=== PATIENT | male | born 1955 | race Caucasian/White ===

== ENCOUNTER 2023-04-05 13:42 | Day surgery (SDC) | payer MEDICARE, BC, SELFPAY ==
[2023-04-05] VITALS (12 sets, daily range): BP systolic 115–148; BP diastolic 52–89; PULSE 80–93; RESP 15–20; TEMP 36.1–36.6; O2SAT 94–98; BMI 27.0
--- NOTE | 2023-04-05 14:14 | CTR_ITS ---
PROCEDURE INFORMATION: Exam: CT Abdomen And Pelvis With Contrast Exam date and time: 04/05/2023 3:44 PM Age: 68 years old Clinical indication: Other: Perirectal abscess TECHNIQUE: Imaging protocol: Computed tomography of the abdomen and pelvis with contrast. Radiation optimization: All CT scans at this facility use at least one of these dose optimization techniques: automated exposure control; mA and/or kV adjustment per patient size (includes targeted exams where dose is matched to clinical indication); or iterative reconstruction. Contrast material: OMNI 350; Contrast volume: 100 ml; Contrast route: INTRAVENOUS (IV); REPORTING DATA: Count of CT and Cardiac NM exams in prior 12 months: This patient has received 0 known CTs and 0 known cardiac nuclear medicine studies in the 12 months prior to the current study. COMPARISON: CT abdomen pelvis w con* [id number] 07/14/2018 12:21 PM RADIATION DOSE METRICS: Total DLP (mGy-cm): 626.28 FINDINGS: Liver: There is a 2.9 cm left liver cyst.Hypodensities in the liver are too small to definitely characterize although statistically they most likely represent benign cysts. Gallbladder and bile ducts: Normal. No calcified stones. No ductal dilation. Pancreas: Normal. No ductal dilation. Spleen: Normal. No splenomegaly. Adrenal glands: Normal. No mass. Kidneys and ureters: Normal. No hydronephrosis. Stomach and bowel: Colonic diverticula are present although there are no CT findings to suggest diverticulitis. No bowel obstruction. Appendix: The appendix is visualized and appears normal. Intraperitoneal space: Unremarkable. No free air. No significant fluid collection. Vasculature: Unremarkable. No abdominal aortic aneurysm. Lymph nodes: Unremarkable. No enlarged lymph nodes. Urinary bladder: Unremarkable as visualized. Reproductive: Unremarkable as visualized. Bones/joints: Unremarkable. No acute fracture. Soft tissues: There is a right perianal abscess measuring 4 x 3 cm. This contains an air-fluid level. CT/CT abdomen pelvis w con* [id number] IMPRESSION: There is a right perianal abscess measuring 4 x 3 cm.
--- NOTE | 2023-04-05 14:17 | W.ED.SKABFB ---
HPI - Skin/Abscess/Foreign Bdy General: Chief complaint: Skin/Abscess/Foreign Body Stated complaint: Boil on buttocks Time Seen by Provider: 04/05/23 13:57 History of Present Illness: Patient is a 68-year-old male comes to the ED with abscess on right buttock. Patient says approximately 6 days ago he started developing a small tender nodule on right buttock near anus. Patient says he has had multiple abscesses like this before in the past and had to go to the OR to get them surgically drained. Patient says this current abscess feels like his previous ones. Over the past 6 days the swelling and pain have gotten worse. Now any movement or any pressure in that area when he sits down causes worsening pain. He rates his pain currently an 8 out of 10 when he is resting comfortably in a good position. Denies any fevers, vomiting, bladder or bowel symptoms. Associated symptoms: Deny chills, fever(s), nausea or vomiting Review of Systems Const: Denies: fever(s), chills or fatigue Eyes: Denies: change in vision or eye discomfort ENMT: Denies: throat pain, odynophagia, nasal discharge or nasal congestion Card: Denies: chest pain, palpitations, edema, swelling of feet/ankles, dyspnea on exertion or orthopnea Resp: Denies: dyspnea, productive cough or non-productive cough GI: Denies: abdominal pain, nausea, vomiting, diarrhea, constipation or hematochezia : Denies: flank pain, difficulty urinating, dysuria or hematuria Musc: Denies: neck pain, back pain or extremity swelling Skin/Breast: Reports: new lesions (Abscess on right buttock); Denies: rash Neuro: Denies: headache(s), numbness in extremities or weakness in extremities [facility] ED PFSH: Medical History (Updated 04/05/23 @ 16:57 by AKUA Green) Abscess, perirectal No pertinent family history Physical Exam Const: COMMON NORMALS: patient oriented x3 and alert GENERAL APPEARANCE: not comfortable (Patient appears uncomfortable and in some pain.) HENMT: COMMON NORMALS: normocephalic HEAD & SCALP: normocephalic MOUTH: Normal oral and palatal mucosa present THROAT: posterior oropharynx normal and uvula midline Neck/C-Spine: COMMON NORMALS: supple GENERAL: Yes normal visual inspection Resp: COMMON NORMALS: normal respiratory effort, No retractions, No use of accessory muscles and clear to auscultation bilaterally AUSCULTATION: clear to auscultation bilaterally Cardio: COMMON NORMALS: regular rate, regular rhythm, S1 normal heart sound present, S2 normal heart sound present, No gallops present (Cardio), No clicks present (Cardio), No murmurs present (Cardio) and Peripheral pulses 2+ throughout RATE: regular rate RHYTHM: regular rhythm HEART SOUNDS: S1 normal heart sound present and S2 normal heart sound present PERIPHERAL PULSES: Peripheral pulses 2+ throughout GI: COMMON NORMALS: Normal to inspection, nondistended, normoactive bowel sounds present, Soft to palpation, non-tender and no masses PALPATION: Yes Soft to palpation : COMMON NORMALS: Yes no CVA tenderness BLADDER/KIDNEY EXAM: Yes no CVA tenderness Back/Pelvis: COMMON NORMALS: no CVA tenderness Extremity: COMMON NORMALS: normal to inspection Neuro: COMMON NORMALS: patient oriented x3 SENSORIUM/ORIENTATION: Yes alert GAIT: Yes Normal gait present Skin: NARRATIVE SKIN EXAM: Right buttock?erythemic, tender and swollen area, no visible purulent drainage seen. Mass is fluctuant and indurated findings suggestive of an abscess SKIN IMAGES (MALE): 1. Erythemic, tender and swollen area. No visible purulent drainage seen. Mass fluctuant and indurated GENERAL SKIN EXAM: dry skin Course Vital Signs: Vital signs: Vital Signs Temperature 97.0 F L 04/05/23 20:04 Pulse Rate 87 04/05/23 20:10 Respiratory Rate 18 04/05/23 20:10 Blood Pressure 121/68 04/05/23 20:10 Pulse Oximetry 96 04/05/23 20:10 Oxygen Delivery Me thod Room Air 04/05/23 20:10 MDM - Skin/Abscess/Foreign Bdy Medicial Decision Making Patient is a 68-year-old male comes to the ED with abscess on right buttock. Patient says approximately 6 days ago he started developing a small tender nodule on right buttock near anus. Patient says he has had multiple abscesses like this before in the past and had to go to the OR to get them surgically drained. Patient says this current abscess feels like his previous ones. Over the past 6 days the swelling and pain have gotten worse. Now any movement or any pressure in that area when he sits down causes worsening pain. He rates his pain currently an 8 out of 10 when he is resting comfortably in a good position. Denies any fevers, vomiting, bladder or bowel symptoms. Vitals are stable. Patient appears uncomfortable and in some pain. Right buttock?erythemic, tender and swollen area, no visible purulent drainage seen. Mass is fluctuant and indurated findings suggestive of an abscess. White blood count of 14 and the rest of CBC and CMP were unremarkable. CT of abdomen pelvis shows a right perianal abscess measuring 4 x [address] Baer the general surgeon on-call and told her about patient case and CT findings of perianal abscess. Dr. Baer will be coming to see patient here in the ED and then taking patient to the OR to perform abscess I&D. Lab Data I reviewed the patient's lab results. 04/05/23 14:31 04/05/23 14:31 Radiology Impressions Abdomen/Pelvis CT 04/05/23 14:14 IMPRESSION: There is a right perianal abscess measuring 4 x 3 cm. Laboratory Results WBC 14.0 10^3/uL (4.0-10.0) H 04/05/23 14:31 RBC 5.20 10^6/uL (4.1-5.3) 04/05/23 14:31 Hgb 14.7 g/dL (11.7-16.6) 04/05/23 14:31 Hct 47.0 % (42.0-52.0) 04/05/23 14:31 MCV 90.4 fl (80-94) 04/05/23 14:31 MCH 28.3 pg (28.0-34.0) 04/05/23 14:31 MCHC 31.3 g/dL (30.0-36.0) 04/05/23 14:31 RDW 13.4 % (12.1-15.1) 04/05/23 14:31 Plt Count 380 10^3/cmm (130-400) 04/05/23 14:31 MPV 9.2 fL (7.4-10.4) 04/05/23 14:31 Neut % (Auto) 79.7 % 04/05/23 14:31 Lymph % (Auto) 10.5 % 04/05/23 14:31 [place] % (Auto) 8.3 % 04/05/23 14:31 Eos % (Auto) 0.6 % 04/05/23 14:31 Baso % (Auto) 0.5 % 04/05/23 14:31 Neut # (Auto) 11.20 10^3/uL (1.8-7.7) H 04/05/23 14:31 Lymph # (Auto) 1.5 10^3/uL (0.8-4.8) 04/05/23 14:31 [place] # (Auto) 1.2 10^3/uL (0.2-0.9) H 04/05/23 14:31 Eos # (Auto) 0.1 10^3/uL (0.0-0.8) 04/05/23 14:31 Baso # (Auto) 0.1 10^3/uL (0.0-0.1) 04/05/23 14:31 Nucleated RBC % (auto) 0 % 04/05/23 14:31 Nucleated RBCs # 0.0 /100WBC 04/05/23 14:31 Sodium 137 mmol/L (136-145) 04/05/23 14:31 Potassium 3.9 mmol/L (3.5-5.1) 04/05/23 14:31 Chloride 102 mmol/L (98-107) 04/05/23 14:31 Carbon Dioxide 24 mmol/L (22-29) 04/05/23 14:31 Anion Gap 14.9 (5-19) 04/05/23 14:31 BUN 11 mg/dL (8-23) 04/05/23 14:31 Creatinine 0.9 mg/dL (0.7-1.2) 04/05/23 14:31 GFR Calculation 84.2 mL/min (90-130) L 04/05/23 14:31 Glucose 193 mg/dL (65-115) H 04/05/23 14:31 Calculated Osmolality 289 mOsm/kg (285-295) 04/05/23 14:31 Calcium 8.4 mg/dL (8.5-10.5) L 04/05/23 14:31 Total Bilirubin 0.4 mg/dL (0.15-1.2) 04/05/23 14:31 AST 15 U/L (0-40) 04/05/23 14:31 ALT 18 U/L (0-41) 04/05/23 14:31 Alkaline Phosphatase 80 U/L (40-130) 04/05/23 14:31 Total Protein 6.9 g/dL (6.6-8.7) 04/05/23 14:31 Albumin 3.8 g/dL (3.5-5.2) 04/05/23 14:31 Globulin 3.1 g/dL (1.3-4.6) 04/05/23 14:31 Discharge Plan Discharge Patient Disposition: Placed in Observation Clinical Impression: Abscess, perianal Discharge Diet: Usual diet Discharge Activity: Increase activity as tolerated Coding Level of Care Code ED [employer] for Ondina Jones
[2023-04-05] MEDS: morphine 4 mg/mL SDV 1 mL IVP (14:34)
[2023-04-05] MEDS: ondansetron 2 mg/ML SDV 2 mL 4 MG IVP (14:34)
[2023-04-05 14:59] LABS: Basophils # 0.1 10^3/uL (0.0-0.1); Basophils % 0.5 %; Eosinophils # 0.1 10^3/uL (0.0-0.8); Eosinophils % 0.6 %; Hemoglobin 14.7 g/dL (11.7-16.6); Lymphocytes # 1.5 10^3/uL (0.8-4.8); Lymphocytes % 10.5 %; Mean Corpuscular HGB Conc 31.3 g/dL (30.0-36.0); Mean Corpuscular Hemoglobin 28.3 pg (28.0-34.0); Mean Corpuscular Volume 90.4 fl (80-94); Mean Platelet Volume 9.2 fL (7.4-10.4); Monocytes # 1.2 10^3/uL (0.2-0.9); Monocytes % 8.3 %; Neutrophils % 79.7 %; Nucleated Red Blood Cells % 0 %; Platelet Count 380 10^3/cmm (130-400); Red Cell Distribution Width 13.4 % (12.1-15.1)
[2023-04-05 15:20] LABS: Alanine Aminotransferase 18 U/L (0-41); Albumin Level 3.8 g/dL (3.5-5.2); Alkaline Phosphatase 80 U/L (40-130); Anion Gap 14.9 (5-19); Aspartate Amino Transferase 15 U/L (0-40); Blood Urea Nitrogen 11 mg/dL (8-23); Calcium 8.4 mg/dL (8.5-10.5); Carbon Dioxide 24 mmol/L (22-29); Chloride 102 mmol/L (98-107); Globulin 3.1 g/dL (1.3-4.6); Glomerular Filtration Rate 84.2 mL/min (90-130); Glucose 193 mg/dL (65-115); Osmolality Calculated 289 mOsm/kg (285-295); Potassium 3.9 mmol/L (3.5-5.1); Sodium 137 mmol/L (136-145); Total Bilirubin 0.4 mg/dL (0.15-1.2); Total Protein 6.9 g/dL (6.6-8.7)
[2023-04-05] MEDS: iohexol 350 mg/mL 500 mL Btl (per mL) IV (15:48)
--- NOTE | 2023-04-05 17:38 | P.HP_ITS ---
Same Day Surgery H&P Indication for Procedure/HPI DATE OF PROCEDURE: April 05, 2023 CHIEF COMPLAINT/INDICATIONFOR SURGICAL PROCEDURE: Abscess PREOP DIAGNOSIS: Perianal abscess PLANNED PROCEDURE: Examination under anesthesisa, incision and drainage of perianal abscess Nitish Alarcon is a 68-year-old patient who presents with acute pain and swelling near the anus for about a week. He has a history of prior perirectal abscesses. He can sometimes get them to drain spontaneously with soaking and compresses but has had to have surgical drainage on a number of occasions. It sounds like there may have been concern for a fistula in the past, but he has not had any treatment for fistula. He has not taken his temperature at home. He has not eaten since breakfast. ROS GENERAL: Malaise and anorexia, no documented fever OR chills CV: Denies exertional chest pain RESPIRATORY: Fairly active without dyspnea on exertion (mows lawn, etc, without difficulty), denies anesthetic complications HEMATOLOGIC: Denies easy bleeding Medications/Allergies* Home Medications Medication Instructions Recorded Confirmed Type No Known Home Medications 04/05/23 04/05/23 History Allergies/Adverse Reactions Allergy/AdvReac Type Severity Reaction Status Date / Time No Known Allergies Allergy Unverified 04/05/23 15:21 Pertinent History/Comorbid Conditions* COPD Depression Medical History (Updated 04/05/23 @ 16:57 by AKUA Green) Abscess, perirectal No pertinent family history Smokes 1 to 1-1/2 packs/day Pertinent Exam Findings alert, clear to auscultation bilaterally and regular rate & rhythm GENERAL/MENTAL STATUS: Alert, no acute distress CV: Regular rate and rhythm, normal S1 and S2 RESPIRATORY: Respirations unlabored, no wheezing or rhonchi : Large area of erythema and exquisite tenderness right perianal tissue, cannot assess for fluctuance due to tenderness. EXTREMITIES: Moves all extremities. Pertinent Data Radiology Impressions Abdomen/Pelvis CT 04/05/23 14:14 IMPRESSION: There is a right perianal abscess measuring 4 x 3 cm. Laboratory Results WBC 14.0 10^3/uL (4.0-10.0) H 04/05/23 14:31 RBC 5.20 10^6/uL (4.1-5.3) 04/05/23 14:31 Hgb 14.7 g/dL (11.7-16.6) 04/05/23 14:31 Hct 47.0 % (42.0-52.0) 04/05/23 14:31 MCV 90.4 fl (80-94) 04/05/23 14:31 MCH 28.3 pg (28.0-34.0) 04/05/23 14:31 MCHC 31.3 g/dL (30.0-36.0) 04/05/23 14:31 RDW 13.4 % (12.1-15.1) 04/05/23 14:31 Plt Count 380 10^3/cmm (130-400) 04/05/23 14:31 MPV 9.2 fL (7.4-10.4) 04/05/23 14:31 Neut % (Auto) 79.7 % 04/05/23 14:31 Lymph % (Auto) 10.5 % 04/05/23 14:31 [place] % (Auto) 8.3 % 04/05/23 14:31 Eos % (Auto) 0.6 % 04/05/23 14:31 Baso % (Auto) 0.5 % 04/05/23 14:31 Neut # (Auto) 11.20 10^3/uL (1.8-7.7) H 04/05/23 14:31 Lymph # (Auto) 1.5 10^3/uL (0.8-4.8) 04/05/23 14:31 [place] # (Auto) 1.2 10^3/uL (0.2-0.9) H 04/05/23 14:31 Eos # (Auto) 0.1 10^3/uL (0.0-0.8) 04/05/23 14:31 Baso # (Auto) 0.1 10^3/uL (0.0-0.1) 04/05/23 14:31 Nucleated RBC % (auto) 0 % 04/05/23 14:31 Nucleated RBCs # 0.0 /100WBC 04/05/23 14:31 Sodium 137 mmol/L (136-145) 04/05/23 14:31 Potassium 3.9 mmol/L (3.5-5.1) 04/05/23 14:31 Chloride 102 mmol/L (98-107) 04/05/23 14:31 Carbon Dioxide 24 mmol/L (22-29) 04/05/23 14:31 Anion Gap 14.9 (5-19) 04/05/23 14:31 BUN 11 mg/dL (8-23) 04/05/23 14:31 Creatinine 0.9 mg/dL (0.7-1.2) 04/05/23 14:31 GFR Calculation 84.2 mL/min (90-130) L 04/05/23 14:31 Glucose 193 mg/dL (65-115) H 04/05/23 14:31 Calculated Osmolality 289 mOsm/kg (285-295) 04/05/23 14:31 Calcium 8.4 mg/dL (8.5-10.5) L 04/05/23 14:31 Total Bilirubin 0.4 mg/dL (0.15-1.2) 04/05/23 14:31 AST 15 U/L (0-40) 04/05/23 14:31 ALT 18 U/L (0-41) 04/05/23 14:31 Alkaline Phosphatase 80 U/L (40-130) 04/05/23 14:31 Total Protein 6.9 g/dL (6.6-8.7) 04/05/23 14:31 Albumin 3.8 g/dL (3.5-5.2) 04/05/23 14:31 Globulin 3.1 g/dL (1.3-4.6) 04/05/23 14:31 Recommendations Surgery/Procedure today Other Plans: Superficial perianal abscess. I recommended to the patient that incision and drainage be done under anesthesia. I discussed with him risks of infection, bleeding, and damage to adjacent structures. I cannot offer any advice as to whether he will need further treatment for a fistula until a thorough examination is completed during surgery. All questions were answered to his satisfaction. He would like to proceed with examination under anesthesia and incision and drainage of perianal abscess. Coding Level of Care Code Acute Code for Chg Fwd Diagnoses
--- NOTE | 2023-04-05 18:33 | ANES.PREANE2 ---
Pre-Anesthetic Assessment Height/Weight: Height 1.73 m Weight 80.739 kg Temp Pulse Resp BP Pulse Ox O2 Del Method 97.9 F 84 16 121/58 94 Room Air 04/05/23 13:53 04/05/23 17:30 04/05/23 14:34 04/05/23 17:30 04/05/23 17:30 04/05/23 15:36 Preop Diagnosis: Perianal abscess Operation Date: 04/05/23 13:40 Proposed Procedures p Incision And Drainage Incision And Drainage Perianal Abscess(Not Applicable) - Marlen Baer MD Familial anesthetic complications: None Was Beta Adalid taken within 24 hours: N/A Was Clonidine taken within 24 hours: N/A Last intake: > 8hrs Social Tobacco and No alcohol Exam alert, oriented x 3, clear to auscultation bilaterally and regular rate & rhythm Airway Mallampati: Class II Dentition: chipped and other (mulitple missing, extensive dental work) Pulmonary Chronic Obstructive Pulmonary Disease (no steroids, oxygen use, or hospitalizations) Anesthetic Plan ASA status: 2 Anesthesia: General Risk of > 500 ml blood loss (7ml/kg in children): No Medications/Allergies Home Medications Medication Instructions Recorded Confirmed Last Taken Type No Known Home Medications 04/05/23 04/05/23 Unknown History Allergies Allergy/AdvReac Type Severity Reaction Status Date / Time No Known Allergies Allergy Unverified 04/05/23 15:21 [facility] Anesthesia Medical History (Updated 04/05/23 @ 16:57 by AKUA Green) Abscess, perirectal No pertinent family history Data Anesthesia 04/05/23 14:31 04/05/23 14:31 Short CBC 04/05/23 Range/Units 14:31 WBC 14.0 H (4.0-10.0) 10^3/uL Hgb 14.7 (11.7-16.6) g/dL Hct 47.0 (42.0-52.0) % MCV 90.4 (80-94) fl Plt Count 380 (130-400) 10^3/cmm Neut % (Auto) 79.7 % Neut # (Auto) 11.20 H (1.8-7.7) 10^3/uL BMP 04/05/23 14:31 Sodium 137 Potassium 3.9 Chloride 102 Carbon Dioxide 24 BUN 11 Creatinine 0.9 Glucose 193 H Calcium 8.4 L Liver Function 04/05/23 Range/Units 14:31 Total Bilirubin 0.4 (0.15-1.2) mg/dL AST 15 (0-40) U/L ALT 18 (0-41) U/L Alkaline Phosphatase 80 (40-130) U/L Albumin 3.8 (3.5-5.2) g/dL Microbiology 04/05/23 14:31 Blood Culture - Preliminary Blood SPECIMEN COLLECTED 04/05/23 14:48 Blood Culture - Preliminary Blood SPECIMEN COLLECTED Cardiac Studies: No Data to Display
[2023-04-05] MEDS: cefTRIAXone 1,000 MG in sodium chloride 0.9% (plus) 50 ML 100 MG IV (18:59)
--- NOTE | 2023-04-05 19:39 | PM.OP ---
Operative Report Date of procedure: April 05, 2023 Pre-op diagnosis: Preop Diagnosis Perianal abscess Post-op diagnosis: Same Post-op findings: Right perianal abscess superficial Procedure done: Incision and drainage perianal abscess Specimens removed/disposition: Wound culture Surgeon: Marlen Baer MD Architectural Representative: None Anesthesia: General (LMA) Estimated blood loss: Less than 5 mL Complications: None Findings: Large abscess right perianal tissue. Moderate internal hemorrhoids, no evidence of internal fistula opening. Condition: stable Disposition: PACU Brief History: Nitish Alarcon is a 68-year-old patient who presents with pain and swelling near the anus. He has a history of perirectal abscesses. Procedure: The patient was brought to the operating room and placed on the table in the supine position. General anesthetic was given,and an LMA was placed. The patient was placed into lithotomy position. The perineum was prepped with Betadine and sterilely draped. Skin overlying the palpable fluctuance was infiltrated with 0.5% Marcaine and 1% lidocaine with epinephrine. A fluid sample was aspirated for culture. Additional local anesthetic was infiltrated around the anus prior to inserting a lubricated speculum. Examination revealed no masses and no fissure. Moderate internal hemorrhoids were seen. There was no purulent discharge within the anal canal or any other evidence of an internal fistula opening. A #11 blade was used to make a cruciate incision over the abscess, yielding copious purulent discharge. Hemostat was used to probe for loculations, and the cavity was copiously irrigated with saline. Cavity was packed with half-inch packing strip. A benito-pad was placed. The patient was awakened, extubated, and transferred to recovery in satisfactory condition.
== END 2023-04-05 19:52 | disposition home or self-care (01) ==
LOC: ER 17:39 → OR 18:40
PROVIDERS: Emergency Provider Physician Assistant; PCP Family Medicine; Visit Provider Surgery
PROC: (CPT 46050; principal; 2023-04-05 13:30)
DX: K61.0 Anal abscess (principal); K64.8 Other hemorrhoids; J44.9 Chronic obstructive pulmonary disease, unspecified; F32.A Depression, unspecified; F17.200 Nicotine dependence, unspecified, uncomplicated
CPT/HCPCS: 46050; 12345; 74177; 80053; 85025; 87040; 87070; 87075; 87205; 99285; J0330; J0696; J2270; J2405; J2704; J3010; Q9967

== ENCOUNTER → 2023-04-12 15:38 | Outpatient (BNVA) | payer MEDICARE, BC, SELFPAY | PROVIDERS: PCP Family Medicine; Visit Provider Surgery | DX: K61.0 Anal abscess (principal) | CPT/HCPCS: 99024 ==

== ENCOUNTER 2025-03-25 05:28 | Observation (INO) | payer MEDICARE, BC, SELFPAY ==
[2025-03-25] VITALS (20 sets, daily range): BP systolic 95–130; BP diastolic 46–73; PULSE 67–75; RESP 14–18; TEMP 36.3–36.8; O2SAT 93–98; BMI 25.4
--- NOTE | 2025-03-25 06:58 | W.ED.SKABFB ---
HPI - Skin/Abscess/Foreign Bdy General: Chief complaint: Skin/Abscess/Foreign Body Stated complaint: absess on perinium(sp) Time Seen by Provider: 03/25/25 05:41 History of Present Illness: 70-year-old male presents emergency room with tender peritoneal nodule began several days ago was seen in outpatient clinic started on Bactrim. He had perirectal abscess drained about 2 years ago has a recurrence now. Previous one was incised and drained in the OR. No fever sweats or chills no drainage from the wound no bloody diarrhea. Associated symptoms: Deny chills or fever(s) Related Data Home Medications ?Medication ?Instructions ?Recorded ?Confirmed ibuprofen 200 mg tablet (Advil) 200 mg PO Q6H PRN Fever Or Pain 03/25/25 03/25/25 sulfamethoxazole 800 1 tab PO BID 03/25/25 03/25/25 mg-trimethoprim 160 mg tablet Allergies Allergy/AdvReac Type Severity Reaction Status Date / Time No Known Allergies Allergy Unverified 04/12/23 15:40 Review of Systems Const: Denies: fever(s) or chills Card: Denies: chest pain Resp: Denies: dyspnea GI: Denies: abdominal pain : Denies: dysuria, urinary frequency or urinary urgency Musc: Denies: neck pain or back pain Skin/Breast: Denies: rash [facility] ED PFSH: Medical History Abscess, perirectal No pertinent family history Family History Unknown Diabetes Heart disease Social History Smoking and tobacco/nicotine status: current every day tobacco/nicotine user cigarettes Alcohol intake: current Physical Exam Const: COMMON NORMALS: no acute distress GENERAL APPEARANCE: cooperative and comfortable ORIENTATION/CONSCIOUSNESS: Yes awake, Yes oriented to person, Yes oriented to place and Yes oriented to time HENMT: COMMON NORMALS: normocephalic, atraumatic and hearing grossly normal bilaterally HEAD & SCALP: normocephalic and atraumatic Resp: COMMON NORMALS: normal respiratory effort, No retractions, No use of accessory muscles and clear to auscultation bilaterally AUSCULTATION: clear to auscultation bilaterally Cardio: COMMON NORMALS: regular rate, regular rhythm and No murmurs present (Cardio) RATE: regular rate RHYTHM: regular rhythm GI: COMMON NORMALS: Soft to palpation and No hepatosplenomegaly present AUSCULTATION: Yes normoactive bowel sounds PALPATION: Yes Soft to palpation, No Tenderness to palpation present (GI), No Guarding due to palpation present (GI) and Yes No hepatosplenomegaly present : OTHER: Examination the perineum large fluctuant exquisitely tender perineal abscess. Scar from previous incision and drainage noted no active drainage. Extremity: COMMON NORMALS: normal to inspection, capillary refill normal, no clubbing, cyanosis or edema, no calf tenderness and no pedal edema Neuro: SENSORIUM/ORIENTATION: Yes oriented to person, Yes oriented to place and Yes oriented to time Skin: COMMON NORMALS: no rashes or lesions noted GENERAL SKIN EXAM: no rashes or lesions noted Course Vital Signs: Vital signs: Vital Signs Temperature 97.3 F L 03/25/25 11:24 Pulse Rate 69 03/25/25 11:24 Respiratory Rate 16 03/25/25 11:24 Blood Pressure 100/46 03/25/25 11:24 Pulse Oximetry 96 03/25/25 11:24 Oxygen Delivery Me thod Room Air 03/25/25 11:24 MDM - Skin/Abscess/Foreign Bdy Medicial Decision Making CT confirms large perirectal abscesses 8 x 1-1/2 cm. Started on IV antibiotics will admit discussed with Dr. Carrera orders written for admission plan is for incision and drainage. Medical Records I reviewed the patient's medical records. Lab Data I reviewed the patient's lab results. 03/25/25 07:15 03/25/25 08:[address] 03/25/25 07:02 IMPRESSION: Peripherally enhancing perineal abscess measuring 7.9 x 1.5 cm at the 5 o'clock position with a small tract extending to the external anal sphincter. Laboratory Results WBC 12.11 10^3/uL (3.29-11.43) H 03/25/25 07:15 RBC 5.51 10^6/uL (3.85-5.65) 03/25/25 07:15 Hgb 15.40 g/dL (11.27-16.99) 03/25/25 07:15 Hct 47.1 % (37-53) 03/25/25 07:15 MCV 85.5 fl (82-101) 03/25/25 07:15 MCH 27.9 pg (27-33) 03/25/25 07:15 MCHC 32.7 g/dL (30-55) 03/25/25 07:15 RDW 16.0 % (12.1-15.1) H 03/25/25 07:15 Plt Count 285 10^3/cmm (157-399) 03/25/25 07:15 MPV 9.5 fL (7.4-10.4) 03/25/25 07:15 Neut % (Auto) 78.0 % 03/25/25 07:15 Lymph % (Auto) 12.2 % 03/25/25 07:15 [place] % (Auto) 7.9 % 03/25/25 07:15 Eos % (Auto) 0.8 % 03/25/25 07:15 Baso % (Auto) 0.6 % 03/25/25 07:15 Neut # (Auto) 9.44 10^3/uL (1.8-7.7) H 03/25/25 07:15 Lymph # (Auto) 1.5 10^3/uL (0.8-4.8) 03/25/25 07:15 [place] # (Auto) 1.0 10^3/uL (0.2-0.9) H 03/25/25 07:15 Eos # (Auto) 0.1 10^3/uL (0.0-0.8) 03/25/25 07:15 Baso # (Auto) 0.1 10^3/uL (0.0-0.1) 03/25/25 07:15 Nucleated RBC % (auto) 0 % 03/25/25 07:15 Nucleated RBCs # 0.0 /100WBC 03/25/25 07:15 Sodium 137 mmol/L (136-145) 03/25/25 08:07 Potassium 4.2 mmol/L (3.5-5.1) 03/25/25 08:07 Chloride 106 mmol/L (98-107) 03/25/25 08:07 Carbon Dioxide 23 mmol/L (22-29) 03/25/25 08:07 Anion Gap 12.2 (5-19) 03/25/25 08:07 BUN 16 mg/dL (8-23) 03/25/25 08:07 Creatinine 1.0 mg/dL (0.7-1.2) 03/25/25 08:07 GFR Calculation 74.1 mL/min (90-130) L 03/25/25 08:07 Glucose 137 mg/dL (65-115) H 03/25/25 08:07 Calculated Osmolality 287 mOsm/kg (285-295) 03/25/25 08:07 Calcium 7.7 mg/dL (8.5-10.5) L 03/25/25 08:07 Total Bilirubin 0.3 mg/dL (0.15-1.2) 03/25/25 08:07 AST 8 U/L (0-40) 03/25/25 08:07 ALT < 5 U/L (0-41) 03/25/25 08:07 Alkaline Phosphatase 63 U/L (40-130) 03/25/25 08:07 Total Protein 6.0 g/dL (6.6-8.7) L 03/25/25 08:07 Albumin 3.1 g/dL (3.5-5.2) L 03/25/25 08:07 Globulin 2.9 g/dL (1.3-4.6) 03/25/25 08:07 Urine Color Yellow (Yellow) 03/25/25 08:11 Urine Appearance Clear (CLEAR) 03/25/25 08:11 Urine pH 6.0 (5-7) 03/25/25 08:11 Ur Specific [place] 1.023 (1.005-1.030) 03/25/25 08:11 Urine Protein Trace (Negative) A 03/25/25 08:11 Urine Glucose (UA) Negative (Normal) 03/25/25 08:11 Urine Ketones Trace (Negative) 03/25/25 08:11 Urine Blood Negative (Negative) 03/25/25 08:11 Urine Nitrate Negative (Negative) 03/25/25 08:11 Urine Bilirubin Negative (Negative) 03/25/25 08:11 Urine Urobilinogen 1.0 mg/dL (Negative) 03/25/25 08:11 Ur Leukocyte Esterase Negative (Negative) 03/25/25 08:11 Urine RBC 0-2 /hpf (0-2) 03/25/25 08:11 Urine WBC 0-5 /hpf (0-5) 03/25/25 08:11 Ur Squamous Epith Cells 0-5 /hpf (0-5) 03/25/25 08:11 Amorphous Sediment Not Reportable 03/25/25 08:11 Urine Bacteria None seen /hpf (NONE) 03/25/25 08:11 Hyaline Casts 0-4 /lpf H 03/25/25 08:11 All radiology interpretation(s) finalized by discharge Discharge Plan Discharge Patient Disposition: Admitted As Inpatient Admit Provider: Dung Carrera Clinical Impression: Abscess, perianal Condition: Stable Coding Level of Care Code ED Director Surgical for Ondina Jones
--- NOTE | 2025-03-25 07:02 | CT_ITS ---
WS: [id number] CT pelvis TECHNIQUE: Contrast-enhanced CT of the pelvis with coronal and sagittal reformatted images. CLINICAL INFORMATION: perirectal abscess COMPARISON: None. DLP: 310.[address] scans at [facility] use at least one of these dose optimization techniques: automated exposure control; mA and/or kV adjustment per patient size (includes targeted exams where dose is matched to clinical indication); or iterative reconstruction. FINDINGS: Peripherally enhancing perineal abscess measuring 7.9 x 1.5 cm at the 5 o'clock position with a small tract extending to the external anal sphincter. Surrounding peripheral enhancement. Surrounding induration and inflammatory changes in the perineal soft tissues. Mild prostate enlargement measuring 4.1 cm. Sigmoid diverticulosis. Normal appendix in the RIGHT lower quadrant. Fat-containing LEFT inguinal hernia. CT/CT pelvis w con* [id number] IMPRESSION: Peripherally enhancing perineal abscess measuring 7.9 x 1.5 cm at the 5 o'cloc k position with a small tract extending to the external anal sphincter.
[2025-03-25] MEDS: sodium chloride 0.9% 1,000 ML 999 ML IV (07:24)
[2025-03-25] MEDS: ondansetron 2 mg/ML SDV 2 mL 4 MG IVP ×2 (07:25→09:16)
[2025-03-25] MEDS: morphine 4 mg/mL SDV 1 mL IVP ×2 (07:25→09:16)
[2025-03-25 07:30] LABS: Basophils # 0.1 10^3/uL (0.0-0.1); Basophils % 0.6 %; Eosinophils # 0.1 10^3/uL (0.0-0.8); Eosinophils % 0.8 %; Hematocrit 47.1 % (37-53); Lymphocytes # 1.5 10^3/uL (0.8-4.8); Lymphocytes % 12.2 %; Mean Corpuscular HGB Conc 32.7 g/dL (30-55); Mean Corpuscular Hemoglobin 27.9 pg (27-33); Mean Corpuscular Volume 85.5 fl (82-101); Mean Platelet Volume 9.5 fL (7.4-10.4); Monocytes % 7.9 %; Neutrophils # 9.44 10^3/uL (1.8-7.7); Nucleated Red Blood Cells % 0 %; Platelet Count 285 10^3/cmm (157-399); Red Blood Count 5.51 10^6/uL (3.85-5.65); White Blood Count 12.11 10^3/uL (3.29-11.43)
[2025-03-25] MEDS: piperacillin-tazobactam 3.375 GM in sodium chloride 0.9% (plus) 50 ML IV ×2 (07:50→17:20)
[2025-03-25 08:24] LABS: Bilirubin Urine Negative (Negative); Blood Urine Negative (Negative); Glucose Urine UA Negative (Normal); Ketones Urine Trace (Negative); Leukocyte Esterase Urine Negative (Negative); Nitrate Urine Negative (Negative); Protein Urine Trace (Negative); Specific Gravity, Urine 1.023 (1.005-1.030); Urine Appearance Clear (CLEAR); Urine Color Yellow (Yellow)
[2025-03-25 08:30] LABS: Add Urine Microscopic? YES; Bacteria Urine None Seen /hpf; Hyaline Casts Urine 0-4 /lpf; RBC Urine 0-2 /hpf (0-2); Squamous Epithelial Cell Urine 0-5 /hpf (0-5); WBC Urine 0-5 /hpf (0-5)
[2025-03-25 08:33] LABS: Alanine Aminotransferase < 5 U/L (0-41); Albumin Level 3.1 g/dL (3.5-5.2); Alkaline Phosphatase 63 U/L (40-130); Anion Gap 12.2 (5-19); Aspartate Amino Transferase 8 U/L (0-40); Blood Urea Nitrogen 16 mg/dL (8-23); Calcium 7.7 mg/dL (8.5-10.5); Carbon Dioxide 23 mmol/L (22-29); Chloride 106 mmol/L (98-107); Creatinine Clr Calc Pharmacy 70.3492; Globulin 2.9 g/dL (1.3-4.6); Glomerular Filtration Rate 74.1 mL/min (90-130); Glucose 137 mg/dL (65-115); Osmolality Calculated 287 mOsm/kg (285-295); Potassium 4.2 mmol/L (3.5-5.1); Sodium 137 mmol/L (136-145); Total Bilirubin 0.3 mg/dL (0.15-1.2)
[2025-03-25] MEDS: iohexol 350 mg/mL 500 mL Btl (per mL) IV (08:47)
--- NOTE | 2025-03-25 09:02 | PM.HP ---
Providers/Chief Complaint Admitting Physician: Dung Carrera MD Primary Care Provider: Anjelica Villalobos MD Chief Complaint: absess on perinium(sp) History of Present Illness Nitish Alarcon is a 70 year old male who who presents with a large perianal abscess. Patient has had abscesses in the past. CT scan showed a large abscess. Medications/Allergies Home Medications ?Medication ?Instructions ?Recorded ?Confirmed ?Last Taken ?Type ibuprofen 200 mg tablet (Advil) 200 mg PO Q6H PRN Fever Or Pain 03/25/25 03/25/25 03/25/25 04:30 History sulfamethoxazole 800 1 tab PO BID 03/25/25 03/25/25 03/24/25 19:00 History mg-trimethoprim 160 mg tablet Allergies Allergy/AdvReac Type Severity Reaction Status Date / Time No Known Allergies Allergy Unverified 04/12/23 15:40 PFSH Acute PFSH: Medical History Abscess, perirectal No pertinent family history Family History Unknown Diabetes Heart disease Social History Smoking and tobacco/nicotine status: current every day tobacco/nicotine user cigarettes Alcohol intake: current Vitals/I&O/Wt Last Vital Signs Temp 97.5 F L 03/25/25 05:52 Pulse 68 03/25/25 08:07 Resp 18 03/25/25 05:52 BP 107/62 03/25/25 08:07 Pulse Ox 97 03/25/25 08:07 O2 Del Method Room Air 03/25/25 08:07 Weight last 48 hrs Weight 167 lb Physical Exam Narrative: Chest: Unlabored breathing room air. No lymphadenopathy. Heart: Regular rate and rhythm. Abdomen: Soft, nontender, nondistended. No masses or lymphadenopathy. Perineum: Large perineal abscess Data 03/25/25 07:15 03/25/25 08:07 Micro: Microbiology 03/25/25 07:15 Blood Culture - Preliminary Blood SPECIMEN COLLECTED 03/25/25 07:27 Blood Culture - Preliminary Blood SPECIMEN COLLECTED A&P Assessment and plan (1) Abscess, perianal: Plan 62-year-old male who presents with a perianal abscess. Discussed risk and benefits and patient agrees to proceed with incision and drainage of perianal abscess, exam under anesthesia of the rectum, possible seton placement. PDMP PDMP Reviewed: Not Reviewed Attestations Medical Necessity Statement*: IV fluids, IV antibiotics, IV pain meds Coding Level of Care Code 42252 Diagnoses Abscess, perianal K61.0
--- NOTE | 2025-03-25 11:08 | PC.NURSE ---
surgery took pt @ [id number]
[2025-03-25] MEDS: sodium chloride 0.9% 1,000 ML 30 ML IV (12:21)
--- NOTE | 2025-03-25 12:59 | ANES.PREANE2 ---
Pre-Anesthetic Assessment Height/Weight: Height 5 ft 8 in Weight 167 lb Temp Pulse Resp BP Pulse Ox O2 Del Method 97.3 F L 69 16 100/46 96 Room Air 03/25/25 11:24 03/25/25 11:24 03/25/25 11:24 03/25/25 11:24 03/25/25 11:24 03/25/25 11:24 Preop Diagnosis: Perirectal abscess Operation Date: 03/25/25 13:00 Proposed Procedures p Exam Under Anesthesia(Not Applicable) - Dung Carrera MD s Perirectal Abscess Incision And Drainage(Not Applicable) - Dung Carrera MD Was Beta Adalid taken within 24 hours: N/A Was Clonidine taken within 24 hours: N/A Last intake: Intake Last Liquid Date 03/25/25 Last Liquid Time 04:30 Last Solid Date 03/24/25 Last Solid Time 19:30 Social No alcohol and No tobacco Exam alert, oriented x 3, clear to auscultation bilaterally and regular rate & rhythm Airway Submandibular: within normal limits Cervical ROM: within normal limits Mallampati: Class II Comments: Comments: Denies any loose teeth Anesthetic Plan ASA status: 2 Anesthesia: General Other: Patient admitted today with perirectal abscess No prior issues with anesthesia N.p.o. since yesterday evening Denies any cardiac or pulmonary issues Labs reviewed, leukocytosis noted Plan for GETA Medications/Allergies Home Medications ?Medication ?Instructions ?Recorded ?Confirmed ?Last Taken ?Type ibuprofen 200 mg tablet (Advil) 200 mg PO Q6H PRN Fever Or Pain 03/25/25 03/25/25 03/25/25 04:30 History sulfamethoxazole 800 1 tab PO BID 03/25/25 03/25/25 03/24/25 19:00 History mg-trimethoprim 160 mg tablet Allergies Allergy/AdvReac Type Severity Reaction Status Date / Time No Known Allergies Allergy Unverified 04/12/23 15:40 Current Medications Generic Name Dose Route Start Last Admin Trade Name Freq PRN Reason Stop Dose Admin Sodium Chloride 1,000 mls @ 30 mls/hr 03/25/25 12:15 03/25/25 12:21 Sodium Chloride 0.9% IV 03/26/25 12:14 30 mls/hr .Q24H GM Administration PFSH Anesthesia Medical History Abscess, perirectal No pertinent family history Family History Unknown Diabetes Heart disease Social History Smoking and tobacco/nicotine status: current every day tobacco/nicotine user cigarettes Alcohol intake: current Data Anesthesia 03/25/25 07:15 03/25/25 08:07 Short CBC 03/25/25 Range/Units 07:15 WBC 12.11 H (3.29-11.43) 10^3/uL Hgb 15.40 (11.27-16.99) g/dL Hct 47.1 (37-53) % MCV 85.5 (82-101) fl Plt Count 285 (157-399) 10^3/cmm Neut % (Auto) 78.0 % Neut # (Auto) 9.44 H (1.8-7.7) 10^3/uL BMP 03/25/25 08:07 Sodium 137 Potassium 4.2 Chloride 106 Carbon Dioxide 23 BUN 16 Creatinine 1.0 Glucose 137 H Calcium 7.7 L Liver Function 03/25/25 Range/Units 08:07 Total Bilirubin 0.3 (0.15-1.2) mg/dL AST 8 (0-40) U/L ALT < 5 (0-41) U/L Alkaline Phosphatase 63 (40-130) U/L Albumin 3.1 L (3.5-5.2) g/dL Urine 03/25/25 Range/Units 08:11 Urine Color Yellow (Yellow) Urine Appearance Clear (CLEAR) Urine pH 6.0 (5-7) Ur Specific [place] 1.023 (1.005-1.030) Urine Protein Trace A (Negative) Urine Glucose (UA) Negative (Normal) Urine Ketones Trace (Negative) Urine Nitrate Negative (Negative) Urine Bilirubin Negative (Negative) Ur Leukocyte Esterase Negative (Negative) Urine RBC 0-2 (0-2) /hpf Urine WBC 0-5 (0-5) /hpf Microbiology 03/25/25 07:15 Blood Culture - Preliminary Blood SPECIMEN COLLECTED 03/25/25 07:27 Blood Culture - Preliminary Blood SPECIMEN COLLECTED
--- NOTE | 2025-03-25 13:35 | PM.OP ---
Operative Report Date of procedure: March 25, 2025 Pre-op diagnosis: Perianal abscess Post-op diagnosis: same Post-op findings: 8 x 4 x 2 cm perianal abscess. Exam under anesthesia performed and did not find a fistula in ano. Procedure done: Exam under anesthesia of the rectum. Incision and drainage of perianal abscess. Implants: N/A Specimens removed/disposition: Culture sent to microbiology Pathology: none sent Pathology: N/A Surgeon: Dung Carrera MD Rug Cleaning Supervisor: N/A Anesthesia: General Estimated blood loss (mL): 10 Complications: N/A Findings: 8 x 4 x 2 cm perianal abscess. Exam under anesthesia performed and did not find a fistula in ano. Condition: stable Disposition: observation Brief History: 70-year-old male with a perianal abscess. Discussed risk and benefits and patient agreed to see with exam under anesthesia of the rectum, possible seton placement, incision and drainage of perianal abscess. Procedure: Consent obtained in the preop area. Patient were brought into the operating room. Scheduled antibiotics administered. SCDs on and working. General anesthesia was induced. Patient was placed in prone positioning. Upper and lower extremities appropriately padded. The perineum was prepped and draped in the usual sterile fashion. A cruciate incision was carried out over the left buttock at the point of maximal tenderness at 7:00. Approximately 80 cc of purulent fluid were evacuated. Cultures were sent. The cavity was irrigated with diluted peroxide. Hemostasis was achieved using electrocautery. Digital rectal exam was unremarkable. A Vázquez retractor was placed in the rectum. Visual inspection was unremarkable. I used a lacrimal probe and was unable to find a fistulous tract between the abscess cavity and the rectum. Vázquez retractor was removed. I then proceeded to irrigate the abscess cavity 1 more time. Dimensions of the cavity were 8 x 4 x 2 cm and tracks anteriorly. Adequate hemostasis was confirmed. I then packed the wound tightly using half-inch Nu Gauze. Fluffs were applied on top and they were secured using gauze underwear. The patient woke up from anesthesia without any complications.
[2025-03-25] MEDS: lidocaine 1% 10 ML INJ XX (13:46)
[2025-03-25] MEDS: BUPivacaine 0.25% INJ 10 mL INJECTION (13:47)
--- NOTE | 2025-03-25 14:37 | PC.NURSE ---
Patient taken to room 261-1 via guerny. Patient stood x 1 assist and transferred self to bed. VS taken T 97.5, HR 68, BP 95/61, 96% on room air. ROXY Mejia notified patient is in room.
[2025-03-26 00:27] VITALS: RESP 15
[2025-03-26] MEDS: morphine 4 mg/mL SDV 1 mL IVP ×2 (00:27→08:18)
[2025-03-26] MEDS: ondansetron 2 mg/ML SDV 2 mL 4 MG IVP (00:28)
[2025-03-26 01:01] VITALS: BP 114/54; PULSE 78; RESP 15; TEMP 36.8; O2SAT 94
[2025-03-26] MEDS: sodium chloride 0.9% 1,000 ML 30 ML IV (02:25)
[2025-03-26] MEDS: piperacillin-tazobactam 3.375 GM in sodium chloride 0.9% (plus) 50 ML IV ×2 (02:25→08:19)
[2025-03-26 05:47] VITALS: BP 109/66; PULSE 59; RESP 17; TEMP 36.9; O2SAT 95
[2025-03-26 08:18] VITALS: RESP 18; O2SAT 99
[2025-03-26 09:14] VITALS: BP 115/62; PULSE 55; RESP 18; TEMP 36.6; O2SAT 96
--- NOTE | 2025-03-26 09:37 | P.PN_ITS ---
Subjective 2 Subjective: Packing changed Cellulitis improved White count down afebrile Vitals/I&O/Wt Last Vital Signs Temp 97.9 F 03/26/25 09:14 Pulse 55 L 03/26/25 09:14 Resp 18 03/26/25 09:14 BP 115/62 03/26/25 09:14 Pulse Ox 96 03/26/25 09:14 O2 Del Method Room Air 03/25/25 17:30 03/25/25 03/26/25 03/26/25 22:59 06:59 14:59 Intake Total 1170 / 1220 952 / 2172 240 / 240 Output Total 400 / 400 Balance 1170 / 1215 952 / 2167 -160 / -160 Weight last 48 hrs Weight 167 lb Weight 167 lb Weight 167 lb Physical Exam 2 Narrative: Chest: Unlabored breathing room air. No lymphadenopathy. Heart: Regular rate and rhythm. Abdomen: Soft, nontender, nondistended. No masses or lymphadenopathy. Perineum: Cellulitis decreased. Packing changed. Data 03/25/25 07:15 03/25/25 08:07 Micro: Microbiology 03/25/25 07:15 Blood Culture - Preliminary Blood NEGATIVE TO DATE 03/25/25 07:27 Blood Culture - Preliminary Blood NEGATIVE TO DATE 03/25/25 13:30 Gram Stain - Final Anus A&P Assessment and plan (1) Abscess, perianal: Plan 70-year-old male who presented with a large perianal abscess. Packing changed. Cleared for discharged on 7 days of antibiotics. Follow-up in 2 weeks. Instructed to do daily packing changes. Will set up home care services for assistance. PDMP PDMP Reviewed: Not Reviewed Attestations 2 Medical Necessity Statement*: IV fluids, IV antibiotics, IV pain meds Coding Level of Care Code 47269 Diagnoses Abscess, perianal K61.0
--- NOTE | 2025-03-26 09:39 | P.DS_ITS ---
Discharge Providers Date of Admission: 03/25/25 08:54 Date of Discharge: March 26, 2025 Attending Provider at Admission: Dung Carrera MD Attending Provider at Discharge: Dung Carrera MD Primary Care Provider: Anjelica Villalobos MD Diagnoses at Discharge Discharge Diagnosis (1) Abscess, perianal: Status: Acute Reason for Visit Reason for Visit: absess on perinium(sp) Hospital Course Hospital Course 70-year-old male who presented with a large perianal abscess and cellulitis. Taken to the OR for incision and drainage of perianal abscess. Exam under anesthesia did not reveal a fistula in ano. Patient remained in observation overnight for packing changes the next day and for pain control as well as IV antibiotics. Patient is doing well the following day. Changed to packing. Cellulitis improved. Cleared for discharge. Instructed to do daily packing changes. Follow-up in 2 weeks. Physical Exam Narrative: Chest: Unlabored breathing room air. No lymphadenopathy. Heart: Regular rate and rhythm. Abdomen: Soft, nontender, nondistended. No masses or lymphadenopathy. Perineum: Cellulitis improved. Packing changed. Discharge Data Studies Completed and Pending Completed Studies During Hospitalization Category Date Time Status CT pelvis w con* [id number] Stat Cat Scan 03/25/25 07:02 Completed Pending at discharge Category Date Time Status Abscess Culture and Gram Stain Routine Lab 03/25/25 13:30 Results Anaerobic Culture Routine Lab 03/25/25 13:30 Results Blood Culture Stat Lab 03/25/25 07:15 Results Radiology Impressions Pelvis CT 03/25/25 07:02 IMPRESSION: Peripherally enhancing perineal abscess measuring 7.9 x 1.5 cm at the 5 o'clock position with a small tract extending to the external anal sphincter. Laboratory Results WBC 12.11 10^3/uL (3.29-11.43) H 03/25/25 07:15 RBC 5.51 10^6/uL (3.85-5.65) 03/25/25 07:15 Hgb 15.40 g/dL (11.27-16.99) 03/25/25 07:15 Hct 47.1 % (37-53) 03/25/25 07:15 MCV 85.5 fl (82-101) 03/25/25 07:15 MCH 27.9 pg (27-33) 03/25/25 07:15 MCHC 32.7 g/dL (30-55) 03/25/25 07:15 RDW 16.0 % (12.1-15.1) H 03/25/25 07:15 Plt Count 285 10^3/cmm (157-399) 03/25/25 07:15 MPV 9.5 fL (7.4-10.4) 03/25/25 07:15 Neut % (Auto) 78.0 % 03/25/25 07:15 Lymph % (Auto) 12.2 % 03/25/25 07:15 [place] % (Auto) 7.9 % 03/25/25 07:15 Eos % (Auto) 0.8 % 03/25/25 07:15 Baso % (Auto) 0.6 % 03/25/25 07:15 Neut # (Auto) 9.44 10^3/uL (1.8-7.7) H 03/25/25 07:15 Lymph # (Auto) 1.5 10^3/uL (0.8-4.8) 03/25/25 07:15 [place] # (Auto) 1.0 10^3/uL (0.2-0.9) H 03/25/25 07:15 Eos # (Auto) 0.1 10^3/uL (0.0-0.8) 03/25/25 07:15 Baso # (Auto) 0.1 10^3/uL (0.0-0.1) 03/25/25 07:15 Nucleated RBC % (auto) 0 % 03/25/25 07:15 Nucleated RBCs # 0.0 /100WBC 03/25/25 07:15 Sodium 137 mmol/L (136-145) 03/25/25 08:07 Potassium 4.2 mmol/L (3.5-5.1) 03/25/25 08:07 Chloride 106 mmol/L (98-107) 03/25/25 08:07 Carbon Dioxide 23 mmol/L (22-29) 03/25/25 08:07 Anion Gap 12.2 (5-19) 03/25/25 08:07 BUN 16 mg/dL (8-23) 03/25/25 08:07 Creatinine 1.0 mg/dL (0.7-1.2) 03/25/25 08:07 GFR Calculation 74.1 mL/min (90-130) L 03/25/25 08:07 Glucose 137 mg/dL (65-115) H 03/25/25 08:07 Calculated Osmolality 287 mOsm/kg (285-295) 03/25/25 08:07 Calcium 7.7 mg/dL (8.5-10.5) L 03/25/25 08:07 Total Bilirubin 0.3 mg/dL (0.15-1.2) 03/25/25 08:07 AST 8 U/L (0-40) 03/25/25 08:07 ALT < 5 U/L (0-41) 03/25/25 08:07 Alkaline Phosphatase 63 U/L (40-130) 03/25/25 08:07 Total Protein 6.0 g/dL (6.6-8.7) L 03/25/25 08:07 Albumin 3.1 g/dL (3.5-5.2) L 03/25/25 08:07 Globulin 2.9 g/dL (1.3-4.6) 03/25/25 08:07 Urine Color Yellow (Yellow) 03/25/25 08:11 Urine Appearance Clear (CLEAR) 03/25/25 08:11 Urine pH 6.0 (5-7) 03/25/25 08:11 Ur Specific [place] 1.023 (1.005-1.030) 03/25/25 08:11 Urine Protein Trace (Negative) A 03/25/25 08:11 Urine Glucose (UA) Negative (Normal) 03/25/25 08:11 Urine Ketones Trace (Negative) 03/25/25 08:11 Urine Blood Negative (Negative) 03/25/25 08:11 Urine Nitrate Negative (Negative) 03/25/25 08:11 Urine Bilirubin Negative (Negative) 03/25/25 08:11 Urine Urobilinogen 1.0 mg/dL (Negative) 03/25/25 08:11 Ur Leukocyte Esterase Negative (Negative) 03/25/25 08:11 Urine RBC 0-2 /hpf (0-2) 03/25/25 08:11 Urine WBC 0-5 /hpf (0-5) 03/25/25 08:11 Ur Squamous Epith Cells 0-5 /hpf (0-5) 03/25/25 08:11 Amorphous Sediment Not Reportable 03/25/25 08:11 Urine Bacteria None seen /hpf (NONE) 03/25/25 08:11 Hyaline Casts 0-4 /lpf H 03/25/25 08:11 Vitals Last Vital Signs Temp 97.9 F 03/26/25 09:14 Pulse 55 L 03/26/25 09:14 Resp 18 03/26/25 09:14 BP 115/62 03/26/25 09:14 Pulse Ox 96 03/26/25 09:14 O2 Del Method Room Air 03/25/25 17:30 Discharge Plan Discharge Patient Disposition: Home Condition: Stable Prescriptions: No Action sulfamethoxazole-trimethoprim 800-160 mg tablet 1 tab PO BID ibuprofen [Advil] 200 mg Tablet 200 mg PO Q6H PRN (Reason: Fever Or Pain) Referrals: Anjelica Villalobos MD [Primary Care Provider, [facility]] Patient Instructions: Opioid Safety, Acute Wound Care (DC), Post Anesthesia Care Discharge Attestations Time Spent in Discharge Care*: greater than 30 min Quality Metrics Clinical Quality Measures [ No reported AMI, CVA or VTE this stay] Coding Level of Care Code Acute Code for Chg Fwd Diagnoses Abscess, perianal K61.0
--- NOTE | 2025-03-26 11:06 | PC.NURSE ---
Upon passing morning medications, this nurse was stopped by patients significant other in the hallway stating that pt was bleeding everywhere This nurse assessed pt and noticed that his IV was leaking onto the bed sheets. This nurse stopped patients fluids and took out patients IV. Pt then transferred to the chair so clean linens could be placed on his bed. Pt was transferred back to bed and a new IV was placed in the right hand. IVP morphine was given after new IV was placed as pt was in pain. Patients significant other stated that patients dinner tray was still left in there from overnight and the INTERNATIONAL [employer] COMPLIANCE MANAGER said he would come back in and get it, but never did. This nurse removed dinner tray from patients room. Patients stated that the pt had not received good care overnight. Pt refused breakfast tray and went and got pt breakfast. Deandre came to bedside to remove packing from abscess and repack/redress. The pt was yelling loudly and very upset. Dr. Carrera asked pt if he was ok with him re-packing his wound as he was just trying to help him. Pt stated I don't think that you are Pt then gave the ok for Dr. Carrera to pack the wound. Pt began yelling profanity repeatedly such as fuck and God Damn Dr. Carrera packed wound adequately and said he did not feel like the pt would tolerate much more. ABD was placed. The pt refused his discharge stating that Dr. Carrera was too sensitive to me yelling and cussing and he did not pack it enough. The pt continues to raise his voice and rooms on both sides are complaining of noise. This nurse asked pt if we could tone it down as we have other patients here and they are upset with the noise.
--- NOTE | 2025-03-26 11:34 | PC.NURSE ---
This nurse contacts Dr. Carrera regarding pt complaint. Pt states that he does not feel that wound was packed properly. States Dr. Carrera stopped too soon because pt states, He was to sensitive to the language I was using. This nurse advised pt that typically if a pt is screaming at the top of their lunges and cussing, will stop procedure, not wanting to cause pt that much pain. Pt states that he wants called. This nurse contacts Dr. Carrera and advises him of above. Dr. Carrera states that the pt is good to discharge home. States that wound is adequately packed. No need to repack today. Pt will need to change packing daily at home. Clarence with case mgt will see pt to see if she can get pt home health to help with wound care.
== END 2025-03-26 12:37 | disposition home health service (06) ==
LOC: ER 07:02 → ER IP 08:55 → MEDSURG 10:55
PROVIDERS: Admitting Provider Student in an Organized Health Care Education/Training Program; Emergency Provider Family Medicine; PCP Family Medicine; Visit Provider Student in an Organized Health Care Education/Training Program
PROC: (CPT 46050; principal; 2025-03-25 13:00)
PROC: (CPT 46040; 2025-03-25 13:00)
DX: K61.0 Anal abscess (principal); L03.315 Cellulitis of perineum; F17.210 Nicotine dependence, cigarettes, uncomplicated
CPT/HCPCS: 46050; 36415; 72193; 80053; 81001; 85025; 87040; 87070; 87075; 87205; 96365; 96375; 96376; 99285; A4216; G0378; J1100; J2250; J2270; J2405; J2543; J2704; J3010; J3490; J7030; J9999

== ENCOUNTER → 2025-04-05 10:43 | Outpatient (BNVA) | payer MEDICARE, BC, SELFPAY | PROVIDERS: PCP Family Medicine; Visit Provider Student in an Organized Health Care Education/Training Program | DX: K61.0 Anal abscess (principal) | CPT/HCPCS: 99024 ==

== ENCOUNTER 2025-06-25 11:04 | Emergency (ER) | payer MEDICARE, BC, SELFPAY ==
[2025-06-25 11:11] VITALS: BP 132/74; PULSE 68; RESP 14; TEMP 36.5; O2SAT 99; BMI 24.0
--- NOTE | 2025-06-25 11:34 | ED_ITS ---
HPI - Abdominal Pain 2 General: Chief Complaint: General Medical Stated Complaint: bottom pain Time Seen by Provider: 06/25/25 11:21 Source: patient Mode of arrival: ambulatory Limitations: no limitations History of Present Illness: Patient is a 70-year-old male with history of surgically drained perianal abscess here for complaints of similar symptoms. He states 4 to 5 days ago he began noticing pain and swelling near his rectum. He states his last abscess was drained back in March by Dr. Carrera and seemingly healed well until now. He has had another one that was also surgically drained before that. He is not complaining of fevers. He has pain with sitting and defecation. Has not noticed any drainage. MD elicited complaint: other (perianal abscess) Pertinent past history: other (perianal abscess) Onset (ago): day(s) Pain Consistency: constant Location: Other (perianal) Severity: severe Radiation: none Migration to: no migration Exacerbating factors: other (sitting/defecating) Relieving factors: nothing Associated Symptoms: Reports other (perianal pain); Denies change in bowel habits, chills, dysuria, fever(s), hematuria, nausea and vomiting Related Data Home Medications ?Medication ?Instructions ?Recorded ?Confirmed ibuprofen 200 mg tablet (Advil) 200 mg PO Q6H PRN Feve r Or Pain 03/25/25 06/25/25 Previous Rx's ?Medication ?Instructions ?Recorded amoxicillin 875 mg-potassium 1 tab PO BID #14 tabs clavulanate 125 mg tablet Allergies Allergy/AdvReac Type Severity Reaction Status Date / Time No Known Allergies Allergy Verified 06/25/25 11:14 Review of Systems 2 Const: Denies: fever(s), chills, body aches, fatigue or malaise Resp: Denies: dyspnea GI: Reports: other (perianal pain); Denies: abdominal pain, nausea, vomiting or change in bowel habits : Denies: dysuria or hematuria Musc: Denies: back pain Neuro: Denies: headache(s) or dizziness PFSH ED 2 PFSH: Medical History Abscess, perirectal No pertinent family history Family History Unknown Diabetes Heart disease Social History Smoking and tobacco/nicotine status: never used tobacco/nicotine Alcohol intake: current Physical Exam 2 Const: COMMON NORMALS: no acute distress, average body habitus, patient oriented x3, no limitations, healthy appearing, alert and well nourished Resp: COMMON NORMALS: normal respiratory effort and clear to auscultation bilaterally AUSCULTATION: clear to auscultation bilaterally Cardio: COMMON NORMALS: regular rate and regular rhythm RATE: regular rate RHYTHM: regular rhythm GI: COMMON NORMALS: Normal to inspection, nondistended, normoactive bowel sounds present, Soft to palpation, non-tender and No hepatosplenomegaly present PALPATION: Yes Soft to palpation and Yes No hepatosplenomegaly present R ECTAL EXAM: Yes tenderness OTHER: large area of significant tenderness and induration to R perianal region-no drainage Neuro: COMMON NORMALS: patient oriented x3 SENSORIUM/ORIENTATION: Yes alert Course 2 Consultations: Consultation #1: Dr. Escobar-recommends IM Rocephin, oral Augmentin and will see in clinic at 8AM on Saturday Vital Signs: Vital signs: Vital Signs Temperature 97.7 F 06/25/25 11:11 Pulse Rate 68 06/25/25 11:11 Respiratory Rate 14 06/25/25 11:11 Blood Pressure 132/74 06/25/25 11:11 Pulse Oximetry 99 06/25/25 11:11 Oxygen Delivery Me thod Room Air 06/25/25 11:11 MDM - Abdominal Pain Medical Decision Making Patient is a 70-year-old male with a history of recurrent perianal abscess sees here for similar symptoms. Vital signs are stable. White count is normal. CT scan showing a small 2.4 x 1.2 cm perianal abscess. I spoke to general surgeon, Dr. Carrera and due to its small size, felt comfortable allowing the patient to go home on oral antibiotics. He will graciously re-evaluate patient at 8 AM on Saturday and if no improvement-will plan for surgical drainage. Patient felt comfortable with this plan. Return precautions discussed. Medical Records I reviewed the patient's medical records. Lab Data I reviewed the patient's lab results. 06/25/25 12:12 06/25/25 12:12 Labs/Radiology: Radiology Impressions Pelvis CT 06/25/25 11:49 IMPRESSION: 1. New RIGHT perianal developing abscess measuring 2.4 x 1.2 cm. 2. Previously described perianal abscess on 03/25/2005 has been surgically excised and debrided. 3. Extensive diverticular disease. 4. Mild rectal wall thickening. This can be further evaluated by colonoscopy if 1 has not been performed recently. 5. No ascites. Laboratory Results WBC 10.70 10^3/uL (3.29-11.43) 06/25/25 12:12 RBC 5.56 10^6/uL (3.85-5.65) 06/25/25 12:12 Hgb 16.00 g/dL (11.27-16.99) 06/25/25 12:12 Hct 47.9 % (37-53) 06/25/25 12:12 MCV 86.2 fl (82-101) 06/25/25 12:12 MCH 28.8 pg (27-33) 06/25/25 12:12 MCHC 33.4 g/dL (30-55) 06/25/25 12:12 RDW 14.1 % (12.1-15.1) 06/25/25 12:12 Plt Count 281 10^3/cmm (157-399) 06/25/25 12:12 MPV 9.0 fL (7.4-10.4) 06/25/25 12:12 Neut % (Auto) 69.3 % 06/25/25 12:12 Lymph % (Auto) 21.1 % 06/25/25 12:12 Doddridge % (Auto) 7.9 % 06/25/25 12:12 Eos % (Auto) 0.7 % 06/25/25 12:12 Baso % (Auto) 0.6 % 06/25/25 12:12 Neut # (Auto) 7.42 10^3/uL (1.8-7.7) 06/25/25 12:12 Lymph # (Auto) 2.3 10^3/uL (0.8-4.8) 06/25/25 12:12 [place]idge # (Auto) 0.9 10^3/uL (0.2-0.9) 06/25/25 12:12 Eos # (Auto) 0.1 10^3/uL (0.0-0.8) 06/25/25 12:12 Baso # (Auto) 0.1 10^3/uL (0.0-0.1) 06/25/25 12:12 Nucleated RBC % (auto) 0 % 06/25/25 12:12 Nucleated RBCs # 0.0 /100WBC 06/25/25 12:12 Sodium 137 mmol/L (136-145) 06/25/25 12:12 Potassium 4.0 mmol/L (3.5-5.1) 06/25/25 12:12 Chloride 103 mmol/L (98-107) 06/25/25 12:12 Carbon Dioxide 22 mmol/L (22-29) 06/25/25 12:12 Anion Gap 16.0 (5-19) 06/25/25 12:12 BUN 14 mg/dL (8-23) 06/25/25 12:12 Creatinine 0.8 mg/dL (0.7-1.2) 06/25/25 12:12 GFR Calculation 95.8 mL/min (90-130) 06/25/25 12:12 Glucose 133 mg/dL (65-115) H 06/25/25 12:12 Calculated Osmolality 286 mOsm/kg (285-295) 06/25/25 12:12 Calcium 8.9 mg/dL (8.5-10.5) 06/25/25 12:12 Total Bilirubin 0.7 mg/dL (0.15-1.2) 06/25/25 12:12 AST 9 U/L (0-40) 06/25/25 12:12 ALT 8 U/L (0-41) 06/25/25 12:12 Alkaline Phosphatase 79 U/L (40-130) 06/25/25 12:12 Total Protein 7.1 g/dL (6.6-8.7) 06/25/25 12:12 Albumin 4.0 g/dL (3.5-5.2) 06/25/25 12:12 Globulin 3.1 g/dL (1.3-4.6) 06/25/25 12:12 All radiology interpretation(s) finalized by discharge Discharge Plan Discharge Patient Disposition: Home Clinical Impression: Abscess, perianal Condition: Stable Prescriptions: New amoxicillin-pot clavulanate 875-125 mg tablet 1 tab PO BID Qty: 14 0RF No Action ibuprofen [Advil] 200 mg Tablet 200 mg PO Q6H PRN (Reason: Fever Or Pain) Discharge Orders: Discharge ED (Routine); Ordered 06/25/25 Ordered By: Kahtrine Razo Referrals: Dung Carrera MD [Physician, General Surgery] Anjelica Villalobos MD [Primary Care Provider, Family Practice] Patient Instructions: Rectal Abscess (ED), Patient Portal & [facility] Instructions Activity Restrictions/Additional Instructions: As we discussed, fill antibiotics and start them immediately. Dr. Escobar will evaluate you at 8am on Saturday for re-evaluation. You may return to the emergency department at anytime for worsening pain, fevers, generally feeling worse or unwell, or any other concerns you may have. Print Language: Greek Coding Level of Care Code ED Fur Floor Worker for Ondina Jones
--- NOTE | 2025-06-25 11:49 | CT_ITS ---
WS: [id number] CT PELVIS WITH CONTRAST HISTORY: perianal abscess TECHNIQUE: Contiguous imaging is performed of the pelvis with contrast. Coronal and sagittal reformats are reviewed. All CT scans at [facility] use at least one of these dose optimization techniques: automated exposure control; mA and/or kV adjustment per patient size (includes targeted exams where dose is matched to clinical indication); or iterative reconstruction. DLP: 320.09 mGy.cm COMPARISON: 03/25/2025. Contrast: Omnipaque 350; 100 mL IV. Surgical debridement and excision of the previously described perianal abscess that was just to the LEFT of midline. There is a new much smaller collection measuring 2.4 x 1.2 cm in the RIGHT perianal region. There is a very small central lucent collection. There is mild soft tissue inflammation in the perineal tissues. No gas formation. There is extensive diverticular disease in the descending and sigmoid colon. No obstructive pattern or acute diverticulitis. There is mild rectal wall thickening measuring up to 8 mm. Normal appendix. No free fluid or adenopathy in the pelvis. Mild atherosclerosis aorta. Partial fusion of the SI joints, LEFT greater than RIGHT. CT/CT pelvis w con* [id number] IMPRESSION: 1. New RIGHT perianal developing abscess measuring 2.4 x 1.2 cm. 2. Previously described perianal abscess on 03/25/2005 has been surgically exci sed and debrided. 3. Extensive diverticular disease. 4. Mild rectal wall thickening. This can be further evaluated by colonoscopy i f 1 has not been performed recently. 5. No ascites.
[2025-06-25 12:18] LABS: Hematocrit 47.9 % (37-53); Hemoglobin 16.00 g/dL (11.27-16.99); Mean Corpuscular HGB Conc 33.4 g/dL (30-55); Mean Corpuscular Hemoglobin 28.8 pg (27-33); Mean Corpuscular Volume 86.2 fl (82-101); Nucleated Red Blood Cells % 0 %; Platelet Count 281 10^3/cmm (157-399); Red Blood Count 5.56 10^6/uL (3.85-5.65); White Blood Count 10.70 10^3/uL (3.29-11.43)
[2025-06-25 12:35] LABS: Alanine Aminotransferase 8 U/L (0-41); Albumin Level 4.0 g/dL (3.5-5.2); Alkaline Phosphatase 79 U/L (40-130); Anion Gap 16.0 (5-19); Aspartate Amino Transferase 9 U/L (0-40); Blood Urea Nitrogen 14 mg/dL (8-23); Calcium 8.9 mg/dL (8.5-10.5); Carbon Dioxide 22 mmol/L (22-29); Chloride 103 mmol/L (98-107); Creatinine Clr Calc Pharmacy 85.9238; Globulin 3.1 g/dL (1.3-4.6); Glucose 133 mg/dL (65-115); Osmolality Calculated 286 mOsm/kg (285-295); Potassium 4.0 mmol/L (3.5-5.1); Sodium 137 mmol/L (136-145); Total Protein 7.1 g/dL (6.6-8.7)
[2025-06-25] MEDS: iohexol 350 mg/mL 500 mL Btl (per mL) IV (12:59)
[2025-06-25] MEDS: cefTRIAXone 1,000 MG in water for injection-sterile 2.1 ML 999 MG IM (14:02)
== END 2025-06-25 14:08 | disposition home or self-care (01) ==
PROVIDERS: Emergency Provider Physician Assistant; PCP Family Medicine
DX: K61.0 Anal abscess (principal)
CPT/HCPCS: 36415; 72193; 80053; 85025; 96372; 99285; J0696

== ENCOUNTER → 2025-06-28 08:06 | Outpatient (BNVA) | payer MEDICARE, BC, SELFPAY | PROVIDERS: PCP Family Medicine; Visit Provider Student in an Organized Health Care Education/Training Program | DX: K61.0 Anal abscess (principal) | CPT/HCPCS: 99214 ==

== ENCOUNTER 2025-07-28 08:07 | Day surgery (SDC) | payer MEDICARE, BC, SELFPAY ==
[2025-07-28] VITALS (12 sets, daily range): BP systolic 104–127; BP diastolic 58–75; PULSE 54–78; RESP 16–18; TEMP 36.1–36.4; O2SAT 95–97; BMI 24.0
--- NOTE | 2025-07-28 08:54 | W.PM.OPSUD ---
Surgery/Procedure H&P Update DATE OF PROCEDURE: July 28, 2025 DATE H&P PERFORMED: 06/28/25 H&P UPDATE INFORMATION: I have reviewed H&P completed within last 30 days, I have examined patient prior to procedure, No changes to prior documentation and Risks and benefits of the procedure reviewed PLANNED PROCEDURE: Operation Date: 07/28/25 10:00 Proposed Procedures p Exam Under Anesthesia(Not Applicable) - Dung Carrera MD s Incision And Drainage Incision And Drainage Perianal Abscess(Not Applicable) - Dung Carrera MD
--- NOTE | 2025-07-28 08:56 | P.ANESASSM_ITS ---
Pre-Anesthetic Assessment Height/Weight: Height 1.73 m Weight 71.668 kg Temp Pulse Resp BP Pulse Ox O2 Del Method 97 F L 78 16 115/75 95 Room Air 07/28/25 08:15 07/28/25 08:15 07/28/25 08:15 07/28/25 08:15 07/28/25 08:15 07/28/25 08:22 Operation Date: 07/28/25 10:00 Proposed Procedures p Exam Under Anesthesia(Not Applicable) - Dung Carrera MD s Incision And Drainage Incision And Drainage Perianal Abscess(Not Applicable) - Dung Carrera MD Familial anesthetic complications: none Was Beta Adalid taken within 24 hours: N/A Was Clonidine taken within 24 hours: N/A Last intake: Intake Last Liquid Date 07/27/25 Last Liquid Time 23:30 Last Solid Date 07/27/25 Last Solid Time 18:30 Social Tobacco and No alcohol Exam alert, oriented x 3, clear to auscultation bilaterally and regular rate & rhythm Airway Mallampati: Class I Dentition: chipped Pulmonary Chronic Obstructive Pulmonary Disease Anesthetic Plan ASA status: 2 Anesthesia: Choice Risk of > 500 ml blood loss (7ml/kg in children): No Medications/Allergies Home Medications ?Medication ?Instructions ?Recorded ?Confirmed ?Last Taken ?Type ibuprofen 200 mg tablet (Advil) 200 mg PO Q6H PRN Feve r Or Pain 03/25/25 07/28/25 03/25/25 04:30 History Allergies Allergy/AdvReac Type Severity Reaction Status Date / Time No Known Allergies Allergy Verified 07/28/25 08:37 Current Medications Generic Name Dose Route Start Last Admin Trade Name Kianq PRN Reason Stop Dose Admin Sodium Chloride 1,000 mls @ 30 mls/hr 07/28/25 08:15 07/28/25 08:35 Sodium Chloride 0.9% IV 07/29/25 08:14 30 mls/hr .Q24H GM Administration PFSH Anesthesia Medical History Abscess, perirectal No pertinent family history Family History Unknown Diabetes Heart disease Social History Smoking and tobacco/nicotine status: never used tobacco/nicotine Alcohol intake: current
[2025-07-28] MEDS: BUPivacaine 0.25% INJ 10 mL 5 ML INJECTION (09:25)
--- NOTE | 2025-07-28 09:26 | PM.OP ---
Operative Report Date of procedure: July 28, 2025 Pre-op diagnosis: Perianal abscess Post-op diagnosis: same Post-op findings: Perianal abscess 6:00. Obtain 5 cc of purulent fluid. Cultures sent. Abscess cavity measured 2 x 2 x 2 cm. Rectal exam unremarkable. Procedure done: Exam under anesthesia of the rectum, incision and drainage of perianal abscess. Implants: N/A Specimens removed/disposition: Cultures sent to pathology Pathology: none sent Surgeon: Dung Carrera MD Under Water Assistant: N/A Anesthesia: MAC Estimated blood loss (mL): 5 Complications: N/A Findings: Perianal abscess 6:00. Obtain 5 cc of purulent fluid. Cultures sent. Abscess cavity measured 2 x 2 x 2 cm. Rectal exam unremarkable. Condition: stable Disposition: same day Brief History: 70-year-old male who presented with a recurrent perianal abscess. Discussed risk and benefits and patient agreed to proceed with exam under anesthesia of the rectum, possible incision and drainage of perineal abscess, possible seton placement. Procedure: Patient was brought in to the operating room. MAC was induced. Patient positioned in left lateral decubitus. The perineum was prepped with betadine and draped. A timeout was performed. All present were in agreement. Pudendal nerve block done bilaterally using 10 cc of 0.5% bupivacaine and 1% lidocaine. ALIDA unremarkable.Retractor was used to examine the rectum. I used a lacrimal probe to look for a fistula in ano. I did not find a fistula in ano. Rectal exam was unremarkable. I then centered my attention to a perianal abscess was encountered at 6:00. I used an 11 blade to create a cruciate incision over the point of maximum fluctuance. I obtained 5 cc of purulent fluid. Cultures were sent. I used a hemostat to break all of the loculations. The abscess cavity measured 2 x 2 x 2 cm. I irrigated the abscess cavity. I packed the abscess cavity using quarter-inch iodoform. Adequate hemostasis was achieved by packing the abscess cavity. Fluffs and mesh underwear was applied. The patient woke up from anesthesia without any complications and was transferred to PACU.
--- NOTE | 2025-07-28 12:00 | ANE.PACU2 ---
Inpatient post-anesthesia follow up: Airway intact: Yes Vital signs: Temperature 97.6 F Pulse Rate 59 Respiratory Rate 18 Blood Pressure 124/59 Pulse Oximetry 97 Oxygen Delivery Me thod Room Air Oxygen Flow Rate Fraction of Inspir ed Oxygen Hydration adequate: Yes Nausea and vomiting: No Pain level: 1 Mental status: Baseline
--- NOTE | 2025-07-28 13:13 | SUR.PHASEII ---
Pt girlfriend was to pick up man patient post op. Girlfriend was in a hair appointment when pt was ready to be discharged. Pt agreed to wait in preop 1 room until she arrived. wedding day coordinator, Demetria, witnessed patient leave the room and followed him to picnic tables outside of main entrance. Pt informed Demetria we would wait on his ride there and was not coming back to the surgery department to wait. Pt's girlfriend called at approximately 1215 to inform me she was on her way, I informed her where patient was waiting and she voiced understanding.
--- NOTE | 2025-07-28 13:24 | SUR.PHASEII ---
Called pt's girlfriend, Stacy, to make sure she found pt and he got home. Stacy said she did and thanked me for checking.
== END 2025-07-28 12:00 | disposition home or self-care (01) ==
PROVIDERS: PCP Family Medicine; Visit Provider Student in an Organized Health Care Education/Training Program
PROC: (CPT 46050; principal; 2025-07-28 10:00)
PROC: (CPT 46050; 2025-07-28 10:00)
DX: K61.0 Anal abscess (principal); J44.9 Chronic obstructive pulmonary disease, unspecified
CPT/HCPCS: 46050; 87070; 87075; 87205; J1100; J1885; J2405; J2704; J3010; J3490; J7030; J9999

== ENCOUNTER → 2025-08-09 09:17 | Outpatient (BNVA) | payer MEDICARE, BC, SELFPAY | PROVIDERS: PCP Family Medicine; Visit Provider Student in an Organized Health Care Education/Training Program | DX: K61.0 Anal abscess (principal) | CPT/HCPCS: 99213 ==

== ENCOUNTER 2025-10-12 15:27 | Emergency (ER) | payer MEDICARE, BC, SELFPAY ==
[2025-10-12 15:47] VITALS: BP 147/65; PULSE 66; RESP 18; TEMP 36.8; O2SAT 96
--- NOTE | 2025-10-12 16:04 | USR_ITS ---
PROCEDURE INFORMATION: Exam: US Duplex Right Lower Extremity Veins, Limited Exam date and time: 10/12/2025 4:25 PM Age: 70 years old Clinical indication: Pain; Leg, lower; Right; Additional info: Leg pain swelling TECHNIQUE: Imaging protocol: Real-time duplex ultrasound of the right extremity with 2-D murrieta scale, color Doppler flow and spectral waveform analysis including responses to compression and other maneuvers (when performed) with image documentation. Limited exam was focused on the right lower extremity veins. COMPARISON: CT pelvis w con* [id number] 06/25/2025 12:56 PM FINDINGS: Right deep veins: Unremarkable. The common femoral, femoral, proximal profunda femoral and popliteal veins are patent without thrombus. Normal Doppler waveforms. Normal compressibility and/or augmentation response. Superficial veins: Greater saphenous vein at the saphenofemoral junction is patent without thrombus. Soft tissues: Unremarkable. US/[place] [id number] IMPRESSION: No evidence of deep vein thrombosis.
--- NOTE | 2025-10-12 16:31 | W.ED.GENADLT ---
HPI - General Adult General: Chief complaint: General Medical Stated complaint: sent by Cale peralta blood clot Time Seen by Provider: 10/12/25 15:52 History of Present Illness: 70-year-old male presents emergency room with a complaint of swelling and pain discomfort over his right lower leg for the last several days progressively worsening no chest pain no shortness of breath no history of DVT or PE not on any anticoagulants. No recent surgeries or long flights or drives. Associated symptoms: Deny chest pain, dyspnea or rash Related Data Home Medications ?Medication ?Instructions ?Recorded ?Confirmed No Known Home Medications 10/12/25 10/12/25 Allergies Allergy/AdvReac Type Severity Reaction Status Date / Time No Known Allergies Allergy Verified 08/09/25 09:18 Review of Systems Const: Denies: fever(s) or chills Card: Denies: chest pain Resp: Denies: dyspnea GI: Denies: abdominal pain : Denies: dysuria, urinary frequency or urinary urgency Musc: Denies: neck pain or back pain Skin/Breast: Denies: rash PFSH ED PFSH: Medical History Abscess, perirectal No pertinent family history Family History Unknown Diabetes Heart disease Social History Smoking and tobacco/nicotine status: never used tobacco/nicotine Alcohol intake: current Physical Exam Const: GENERAL APPEARANCE: cooperative ORIENTATION/CONSCIOUSNESS: Yes awake, Yes oriented to person, Yes oriented to place and Yes oriented to time HENMT: COMMON NORMALS: normocephalic, atraumatic and hearing grossly normal bilaterally HEAD & SCALP: normocephalic and atraumatic Resp: COMMON NORMALS: normal respiratory effort, No retractions, No use of accessory muscles and clear to auscultation bilaterally AUSCULTATION: clear to auscultation bilaterally Cardio: COMMON NORMALS: regular rate, regular rhythm and No murmurs present (Cardio) RATE: regular rate RHYTHM: regular rhythm GI: COMMON NORMALS: Soft to palpation and No hepatosplenomegaly present AUSCULTATION: Yes normoactive bowel sounds PALPATION: Yes Soft to palpation, No Tenderness to palpation present (GI), No Guarding due to palpation present (GI) and Yes No hepatosplenomegaly present Extremity: COMMON NORMALS: normal to inspection, capillary refill normal, no clubbing, cyanosis or edema, no calf tenderness and no pedal edema Neuro: SENSORIUM/ORIENTATION: Yes oriented to person, Yes oriented to place and Yes oriented to time Skin: COMMON NORMALS: no rashes or lesions noted GENERAL SKIN EXAM: no rashes or lesions noted Course Vital Signs: Vital signs: Vital Signs Temperature 98.2 F 10/12/25 15:47 Pulse Rate 71 10/12/25 17:23 Respiratory Rate 18 10/12/25 15:47 Blood Pressure 138/99 10/12/25 17:23 Pulse Oximetry 98 10/12/25 17:23 Oxygen Delivery Me thod Room Air 10/12/25 15:47 MDM - General Adult Medical Decision Making Medical decision making Social determinants: None I reviewed the patient's medical record. I reviewed the patient's current home meds. Alternate historians: None Differential diagnosis: Leg swelling musculoskeletal pain DVT Lab Review: None Imaging: Venous duplex lower extremity negative for acute DVT Assessment of risk Level of risk: Low Hospitalization considerations: Hospitalization not indicated Reexamination: Unchanged Assessment and plan: Patient presents with leg pain mild swelling atypical presentation for DVT venous duplex rules out DVT DVT. Recommend elevating leg anti-inflammatories follow-up with primary care Lab Data Radiology Impressions Venous Duplex 10/12/25 16:04 IMPRESSION: No evidence of deep vein thrombosis. All radiology interpretation(s) finalized by discharge Discharge Plan Discharge Patient Disposition: Home Clinical Impression: Leg pain, right Condition: Stable Prescriptions: No Action No Known Home Medications Discharge Orders: Discharge ED (Routine); Ordered 10/12/25 Ordered By: Tramaine Fuller Referrals: Anjelica Villalobos MD [Primary Care Provider, Family Practice] Discharge Diet: Usual diet Discharge Activity: Increase activity as tolerated Patient Instructions: Opioid Safety, Pain Management, Patient Portal & [facility] Instructions Activity Restrictions/Additional Instructions: Thank you for choosing [facility] for your healthcare needs today. It is very important that you follow up as instructed or that you return to the Emergency Department should you have concerns or if your condition changes or worsens in any way. Emergency department visits are focused on emergent conditions, in some cases you may require further evaluation on an outpatient basis. You were seen in the emergency room with complaint of leg discomfort and swelling. There is no evidence of DVT on the ultrasound. Suspect that is musculoskeletal in nature you can use [id number] previously prescribed medications for discomfort follow-up with your primary care doctor (Please note that included in your discharge packet is information concerning opioid safety and pain management. This information is given to all patients were discharged from the ER regardless of their discharge diagnosis or the medicines they usually take or are prescribed.) Print Language: Mauritian Coding Level of Care Code ED Chemical Plant Operator for Ondina Jones
[2025-10-12 17:23] VITALS: BP 138/99; PULSE 71; O2SAT 98
== END 2025-10-12 17:27 | disposition home or self-care (01) ==
PROVIDERS: Emergency Provider Family Medicine; PCP Family Medicine
DX: M79.604 Pain in right leg (principal)
CPT/HCPCS: 93971; 99284